=== PATIENT | female | born 1975 | race Caucasian/White ===

== ENCOUNTER 2018-05-23 06:11 | Day surgery (SDC) | payer BC, OTHER ==
[2018-05-13 14:02] VITALS: BMI 26.5
[2018-05-23] MEDS ORDERED: GENTAMICIN SO4 80 MG/2 ML VIAL ONE (07:20)
[2018-05-23] MEDS ORDERED: ceFAZolin SODIUM 1 GM VIAL ONE ×2 (07:20→08:26)
[2018-05-23] MEDS ORDERED: SUCCINYLCHOLINE CHLORIDE 200 MG/10 ML VIAL ONE (07:21)
[2018-05-23] MEDS ORDERED: LIDOCAINE 1%/EPI 1:100000 (20 ML MULTI DOSE VIAL) ONE (07:21)
[2018-05-23] MEDS ORDERED: ROCURONIUM BROMIDE 50 MG/5 ML VIAL ONE (07:21)
[2018-05-23] MEDS ORDERED: PROPOFOL 20 ML ONE (07:21)
[2018-05-23] MEDS ORDERED: MIDAZOLAM HCL 2 MG/2 ML SINGLE DOSE VIAL ONE (07:21)
[2018-05-23] MEDS ORDERED: fentaNYL CITRATE 250 MCG/5 ML VIAL ONE (07:21)
[2018-05-23] MEDS ORDERED: LIDOCAINE HCL 1%, 10 MG/ML (20ML VIAL) ONE (07:25)
[2018-05-23] MEDS ORDERED: EPINEPHrine/PF 1 MG/1 ML (1:1,000) AMPULE ONE (07:26)
[2018-05-23] MEDS ORDERED: ONDANSETRON 4 MG/2 ML VIAL ONE (08:26)
[2018-05-23] MEDS ORDERED: DEXAMETHASONE SOD PHOSPHATE 4 MG/1 ML VIAL ONE (08:26)
[2018-05-23] MEDS ORDERED: LIDOCAINE 1%/EPI 1:100000 (50 ML MULTI DOSE VIAL) INF ONE ×2 (08:37)
[2018-05-23] MEDS ORDERED: HYDROmorphone HCL/PF 1 MG/ML AMP ONE (09:59)
--- NOTE | 2018-05-23 10:59 | OP ---
Operative Note - Note: Operative Date: 05/23/18 Pre-Operative Diagnosis: asymmetry of b/l breasts s/p mastectomy and reconstruction with implants Operation: Bilateral implant exchange and revision, liposuction and subcutaneous fat transfer Post-Operative Diagnosis: Same as Pre-op Surgeon: Jasper Francisco Electrical Intern: Sudha Garnett Anesthesiologist/RADAR REPAIRER: Kristen Castellanos Anesthesia: General Estimated Blood Loss (mls): 30 Fluid Volume Replaced (mls): 1,500 Operative Report Dictated: Yes
--- NOTE | 2018-05-23 11:00 | SURG ---
Surgery Marketing Analytics Specialist Note Marketing Analytics Specialist: Sudha Garnett PA-C Date of Service: 05/23/18 Diagnosis: b/l breast asymmetry s/p mastectomy and reconstruction with implants Procedure: Bilateral implant exchange and revision, liposuction and subcutaneous fat transfer I was present for the entirety of the operative procedure. For further detail, please refer to operative report. <Sudha Garnett - Last Filed: 05/24/18 14:07> I was present for the entirety of the operative procedure. For further detail, please refer to operative report. <Jasper Francisco - Last Filed: 05/29/18 08:06> Visit type - Case Type Case Type: Scheduled - Emergency Emergency Visit: No - New patient This patient is new to me today: Yes Date on this admission: 05/24/18 <Sudha Garnett - Last Filed: 05/24/18 14:07>
[2018-05-23] MEDS ORDERED: oxyCODONE HCL 5 MG TABLET PO PRN ×2 (11:25)
[2018-05-23] MEDS ORDERED: ONDANSETRON 4 MG/2 ML VIAL IVPUSH PRN (11:25)
[2018-05-23] MEDS ORDERED: PROMETHAZINE HCL 25 MG/1 ML VIAL IVPUSH PRN (11:25)
[2018-05-23] MEDS ORDERED: oxyCODONE HCL 5 MG TABLET ONE (12:20)
[2018-05-23 12:27] VITALS: TEMP 97.5
[2018-05-23 13:21] VITALS: BP 101/74; PULSE 76
--- NOTE | 2018-05-26 18:53 | OP ---
DATE OF OPERATION: 05/23/2018 SURGEON: Jasper Francisco MD STATOR PLATE WASHER: Sudha Garnett PA-C PREOPERATIVE DIAGNOSES: 1. Bilateral acquired chest wall deformity, status post bilateral mastectomy. 2. Acquired asymmetry of reconstructed chest wall. 3. Gross asymmetry and malposition of breast implants. POSTOPERATIVE DIAGNOSES: 1. Bilateral acquired chest wall deformity, status post bilateral mastectomy. 2. Acquired asymmetry of reconstructed chest wall. 3. Gross asymmetry and malposition of breast implants. OPERATIVE PROCEDURE: 1. Right breast reconstruction utilizing other technique. 2. Left breast reconstruction utilizing other technique. 3. Capsulectomy, removal, and replacement of right breast implant. 4. Removal and replacement of left breast implant. INDICATIONS: Patient is a young woman who underwent bilateral mastectomies and reconstruction and now presents with gross asymmetry in the chest wall and requires the above procedures. The risks and benefits of surgical versus nonsurgical alternatives as well as material complications were described in great detail to the patient preoperatively. She agreed to the planned procedure. DESCRIPTION OF PROCEDURE: The patient was marked in the standing position preoperatively for outline of the reconstructed breast. Discussion of the risks and benefits were carried out with her in attendance. The patient was taken to the operating room and after induction of general anesthesia both arms were extended and padded. Venodyne boots were placed. Attention was turned to the chest wall and abdomen. The entire chest wall and abdomen were prepped with ChloraPrep solution over its entire extent and prepping and draping was carried out with timeout in the usual fashion. At this point, attention was turned to the mastectomy scars. They were injected with 1% local lidocaine anesthesia with 1:200,000 epinephrine along the midportion of the inframammary fold. Also the abdominal wall was injected for harvest of reconstructive tissue from both sides of the body. At this point, after allowing topical anesthesia and hemostasis, an incision was made down through the skin to the subcutaneous tissue, through the subcutaneous tissue, down to the underlying chest wall. The capsule was then visualized and a capsulotomy and capsulectomy was performed with removal of the right breast implant. The implant was sent for pathologic diagnosis and then the capsule was examined. Because of the medial pain on the chest wall, the patient required reconstructive surgery with other technique and this was planned to be carried out. In order to centralize the pocket and correct the malposition, capsulorrhaphy was carried out with both the cauterization technique and suture capsulorrhaphy with 0 V-loc suture in the lateral gutter of the right breast. The lateral pocket was closed off in the usual fashion for capsulorrhaphy and a 3-layered capsule running continuous suture containing barbs was carried out in the usual fashion. At this point, attention was turned to the abdominal wall. An incision was made down through the skin, into the subcutaneous tissue, down through the subcutaneous tissue, to the deep area over the rectus and external oblique muscles. Tissue was harvested in these areas in the usual fashion for reconstructive technique and transferred to the back table. The tissue was washed, cleansed, and prepared for reconstruction from both the left and right sides of the flanks. The donor site was then closed with interrupted running sutures in order to perform corrective surgery on the abdominal wall. Once this was accomplished, attention was turned back to the breast. Tissue was then placed into the deep position over the costochondral junction in the midline, superior along the medial, central, lateral, and inferior portions of the subcutaneous vault of the implant. A new implant was then brought into the field. Using triple antibiotic solution the pocket was copiously irrigated with the tissue and a 650 mL, style 45, Natrelle silicone-filled breast implant was placed into the right breast pocket. This showed good shape and contour with the breast and good nipple-areolar position with fill of the lower pole of the breast. The exact same procedure was carried out symmetrically on the opposite breast, also performing capsulectomy, removal and replacement of the implant with the same implant as the right. The tissue was also placed into the medial, superior, lateral, and central portions of the nipple- areolar complex in the usual fashion for reconstruction. Once this was accomplished, symmetry was seen in the sitting position. All tissues appeared to be viable and deep injections into the pericapsular area for comfort were placed. Once this was accomplished, the wounds were closed in layers using 3-0 PDS suture on the deep fascia, 3-0 in the deep dermal fashion, and 4-0 in the subcuticular fashion. All wounds were dressed sterilely with Dermabond, Steri-Strips, and a compressive dressing. The abdominal wound had been closed with interrupted running sutures previously. The patient was placed into a surgical bra with compression dressings, awakened, and transferred to the recovery room in satisfactory condition. SANDIE FRANCISCO M.D. /[id number] [place]
--- NOTE | 2018-05-31 16:18 | PATH ---
Surgical Pathology Report Patient Name: KANG STARKEY Med. Rec. #: [id number] /Age/Gender: 1975 (Age: 42) / F Account: [id number] Location: [facility] Taken: 05/23/2018 Received: 05/23/2018 Reported: 05/31/2018 Physicians: Jasper Francisco Specimen(s) Received A: BILATERAL BREAST IMPLANTS B: RIGHT MASTECTOMY SCAR Clinical History Breast cancer Final Diagnosis A. BILATERAL BREAST IMPLANTS, REMOVAL: IMPLANTS, DESCRIBED (GROSS EXAMINATION ONLY). B. SCAR, RIGHT, MASTECTOMY, EXCISION: SKIN WITH SCAR. Electronically Signed Sudha Ruth M.D. Gross Description A. Received fresh labeled "bilateral breast implants," are 2 clear, rubbery, intact breast implants averaging 12.5 cm in diameter and 5 cm in depth. No soft tissue is present. No sections are submitted, gross only. B. Received in formalin labeled "right mastectomy scar" is a 4.0 x 0.5 cm edward, elliptical, unoriented skin shave. No discrete epidermal lesions are identified. Campaign Director sections are submitted in one cassette. 05/27/2018 saudi05/27/2018
== END 2018-05-23 13:20 | disposition home or self-care (01) ==
LOC: FASU 06:11
PROVIDERS: ATTEND Plastic Surgery
PROC: 0HRT0JZ Replacement of Right Breast with Synthetic Substitute, Open Approach (ICD-10-PCS; 2018-05-23)
PROC: 0HRU0JZ Replacement of Left Breast with Synthetic Substitute, Open Approach (ICD-10-PCS; 2018-05-23)
PROC: 0HPU0JZ Removal of Synthetic Substitute from Left Breast, Open Approach (ICD-10-PCS; 2018-05-23)
PROC: 0HRU0JZ Replacement of Left Breast with Synthetic Substitute, Open Approach (ICD-10-PCS; 2018-05-23)
PROC: 0HRV07Z Replacement of Bilateral Breast with Autologous Tissue Substitute, Open Approach (ICD-10-PCS; principal; 2018-05-23 08:40)
PROC: 0HPT0JZ Removal of Synthetic Substitute from Right Breast, Open Approach (ICD-10-PCS; 2018-05-23 08:40)
DX: M95.4 Acquired deformity of chest and rib (principal); Z90.13 Acquired absence of bilateral breasts and nipples; N65.1 Disproportion of reconstructed breast; T85.42XA Displacement of breast prosthesis and implant, initial encounter; Y82.8 Other medical devices associated with adverse incidents; Y92.9 Unspecified place or not applicable; Y83.8 Other surgical procedures as the cause of abnormal reaction of the patient, or of later complication, without mention of misadventure at the time of the procedure
CPT/HCPCS: 88300-TC; 88304-TC; 94760